=== PATIENT | female | born 2000 | race Caucasian/White ===

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

== ENCOUNTER 2023-11-07 17:12 | Inpatient (IN) | payer OTHER, MEDICAID ==
[2023-11-07] MEDS: Lactated Ringers 1,000 ML IV SCH ×3 (17:40→19:52)
[2023-11-07] MEDS ORDERED: Misoprostol 200 MCG Tab PO PRN (17:51)
[2023-11-07] MEDS ORDERED: Sodium Chloride 0.9% 20 ML SDV IV PRN (17:51)
[2023-11-07] MEDS ORDERED: Lidocaine 1% 50 ML MDV INJECT PRN (17:51)
[2023-11-07] MEDS ORDERED: Water For Irrigation,Sterile 1,000 ML Container IRR PRN (17:51)
[2023-11-07] MEDS ORDERED: Ondansetron 4 MG/2 ML SDV IVPUSH PRN (17:51)
[2023-11-07] MEDS ORDERED: Carboprost Tromethamine 250 MCG/1 mL Vial IM PRN (17:51)
[2023-11-07] MEDS ORDERED: Sodium Chloride 0.9% 10 ML Syringe FLUSH PRN (17:51)
[2023-11-07] MEDS ORDERED: Sodium Chloride 0.9% 2.5 ML Syringe FLUSH PRN (17:51)
[2023-11-07] MEDS ORDERED: Butorphanol 1 MG/ML SDV IVPUSH PRN (17:51)
[2023-11-07] MEDS ORDERED: Methylergonovine 0.2 MG/1 ML Amp IM PRN (17:51)
[2023-11-07] MEDS ORDERED: Tranexamic Acid IN NACL,ISO-OS 1,000 MG in Premix Bag 1 BAG IV PRN ×2 (17:51)
[2023-11-07] MEDS ORDERED: Oxytocin/0.9 % Sodium Chloride 30 UNIT/500 ML BAG IV SCH (18:00)
[2023-11-07 18:02] LABS: HEMATOCRIT 36.1 % (37.0-47.0); HEMOGLOBIN 11.9 g/dL (12.0-16.0); MEAN CORPUSCULAR VOLUME 75.8 fL (83.0-99.0); MEAN PLATELET VOLUME 10.9 fL (9.4-12.3); PLATELET COUNT,PLT 237 K/uL (150-400); RED BLOOD CELL COUNT 4.76 M/uL (4.10-5.30); WHITE BLOOD CELL COUNT,WBC 11.06 K/uL (3.9-11.3)
[2023-11-07] MEDS ORDERED: Ropivacaine HCl/PF 200 ML ONE (18:27)
[2023-11-07] MEDS ORDERED: dexmedeTOMIDine HCl 200 MCG/2 ML SDV ONE (18:27)
[2023-11-07] MEDS ORDERED: Phenylephrine HCl 0.5 MG/5 ML AMP ONE (18:27)
[2023-11-07] MEDS ORDERED: fentaNYL 100 MCG/2 ML SDV ONE (18:33)
[2023-11-07] MEDS ORDERED: Bupivacaine 0.25% 10 ML SDV ONE (18:34)
[2023-11-07] MEDS ORDERED: Phenylephrine HCl 0.5 MG/5 ML AMP IVPUSH PRN (18:40)
[2023-11-07] MEDS ORDERED: ePHEDrine 50 MG/ML SDV IVPUSH PRN ×2 (18:40)
[2023-11-07] MEDS ORDERED: Ropivacaine HCl/PF 400 MG in Premix Bag 1 BAG EPIDUR SCH (18:45)
[2023-11-07] MEDS ORDERED: Witch Hazel Medicated Pads 40/Jar TOP PRN (22:32)
[2023-11-07] MEDS ORDERED: Lanolin 100% Cream 7 GM Tube TOP PRN (22:32)
[2023-11-07] MEDS ORDERED: Benzocaine/Menthol 20%-0.5% Spray 78 GM Cannister TOP PRN (22:32)
[2023-11-07] MEDS ORDERED: oxyCODONE 5 MG Tab PO PRN (22:32)
[2023-11-07] MEDS ORDERED: Acetaminophen 500 MG Tab PO PRN (22:32)
[2023-11-08] MEDS: Ibuprofen 800 MG Tab PO PRN ×2 (05:09→20:59)
[2023-11-08] MEDS: Docusate Sodium 100 MG Cap PO PRN ×2 (05:09→20:59)
[2023-11-08 05:56] LABS: HEMATOCRIT 31.9 % (37.0-47.0); HEMOGLOBIN 10.5 g/dL (12.0-16.0)
[2023-11-08] MEDS ORDERED: diphenhydrAMINE 50 MG/ML SDV IVPUSH ONE (16:37)
[2023-11-08] MEDS ORDERED: Hydrocortisone 1% Crm 30 GM Tube TOP PRN (16:38)
== END 2023-11-09 13:36 | disposition home or self-care (01) | DRG 807 ==
LOC: MW.OBCHECK 17:12 → MW.OB 17:14 → MW.OBCHECK 17:50 → MW.OB 17:51 → OBSVTOIN 21:51 → MW.OB 11-08 02:25
PROVIDERS: ADMIT Obstetrics & Gynecology; ATTEND Obstetrics & Gynecology
PROC: 10E0XZZ Delivery of Products of Conception, External Approach (ICD-10-PCS; principal; 2023-11-07)
PROC: 0KQM0ZZ Repair Perineum Muscle, Open Approach (ICD-10-PCS; 2023-11-07)
PROC: 3E0R3BZ Introduction of Anesthetic Agent into Spinal Canal, Percutaneous Approach (ICD-10-PCS; 2023-11-07)
PROC: 00HU33Z Insertion of Infusion Device into Spinal Canal, Percutaneous Approach (ICD-10-PCS; 2023-11-07)
PROC: 10907ZC Drainage of Amniotic Fluid, Therapeutic from Products of Conception, Via Natural or Artificial Opening (ICD-10-PCS; 2023-11-07)
DX: O70.1 Second degree perineal laceration during delivery (principal); Z37.0 Single live birth; Z3A.39 39 weeks gestation of pregnancy
CPT/HCPCS: 01967; 36415; 51702; 59025; 59409; 84112; 85014; 85018; 85027; 86592; 86850; 86900; 86901; A9270-GY; J1200; J2001; J2371; J2590; J2795; J3010; J3490; J7120